=== PATIENT | female | born 1965 | race Caucasian/White ===

== ENCOUNTER 2022-07-24 10:30 | Outpatient (RCR) | payer OTHER, SELFPAY ==
--- NOTE | 2022-06-01 10:48 | PTOPEVAL1 ---
Assessment and note entered by Pippa Weaver, PT, DPT Evaluation Information Assessment Status Evaluation Diagnosis R hip pain Onset chronic Subjective Information Pt reports R hip pain and back pain. She reports pain into the groin. She states she has completed physical therapy before and states it worked well but she stopped doing her exercises at home and the pain got worse. She reports she does not do any physical activity. She reports difficultly with prolonged standing and walking d/t back pain. Reported Pain Level Pain Score 1,1: Self Report Assessment PT Clinical Summary Ange is an inactive and deconditioned 57 y/o female who presents to therapy today with a diagnosis of R hip pain. Today she reports R hip and low back pain. She demonstrates decreased active and passive motion ROM in all directions with pain at the end ROM. She also demonstrates decreased hip strength. She has an increased lumbar lordosis in sitting and standing and this is even further exasperated during ambulation. Skilled physical therapy services are indicated to address the deficits noted above, to improve core strength, to manage pain, to limit impairment, and to return to baseline function. Plan of Care Interventions Electrical Stimulation,Gait Training,Hot Pack/Cold Pack,Manual Therapy,Neuro Re-education PT Services Indicated Yes Treatment Frequency and 2x/wk for 4 wks or until goals are met Duration These treatments will address the objective and functional deficits as defined above. The patient will be advanced safely and appropriately in order for the patient to progress towards his/her prior level of function. Additional exercises will be introduced and as well as a comprehensive home exercise program upon discharge, if needed, ?to ensure carryover of functional gains achieved in the clinic. This treatment plan has been reviewed and agreement upon by the patient.
--- NOTE | 2022-06-20 10:03 | PCPTNOTE ---
Patient reports she has other obligations and had to cancel this date.
--- NOTE | 2022-06-21 07:58 | PCPTNOTE ---
Patient called & cancelled scheduled appointment this date due to having other obligations.
--- NOTE | 2022-06-28 10:52 | PTOPPROG ---
Assessment and note entered by Pippa Weaver, PT, DPT Evaluation Information Assessment Status Progress Diagnosis R hip pain Onset chronic Subjective Information Pt initially asked how long the appointment is going to take because she does not want to be here . She states the pinching feeling in her groin area is getting better. She also states the pain in her hip when standing is also getting better. She reports an increase time spent on her feet, she states after this she is really sore, she states this was a different pain then usual, maybe from all of the time she spent on her feet. She reports fair to poor compliance with her exercise as she has not done any in almost 2 weeks . Assessment PT Clinical Summary Ange presents to therapy today for her progress report following 3 visits of skilled therapy to treat her R hip and low back pain. Today she reports 10% improvement in overall symptoms. She demonstrates no improvements in her ROM and minimal improvements in her strength. She was able to complete the 5xSTS test in less time but has not improved her gait speed. She reports fiar compliance with her HEP. Continuation of skilled physical therapy services are indicated to improve core strength, to improve hip ROM, to manage pain , and to promote unlimited functional mobility. Plan of Care Interventions Electrical Stimulation,Gait Training,Hot Pack/Cold Pack,Manual Therapy,Neuro Re-education, Therapeutic Activities,Therapeutic Exercise PT Services Indicated Yes Treatment Frequency and 1x/wk for 4 wks Duration These treatments will address the objective and functional deficits as defined above. The patient will be advanced safely and appropriately in order for the patient to progress towards his/her prior level of function. Additional exercises will be introduced and as well as a comprehensive home exercise program upon discharge, if needed, ?to ensure carryover of functional gains achieved in the clinic. This treatment plan has been reviewed and agreement upon by the patient.
--- NOTE | 2022-07-24 11:27 | PTOPPROG ---
Assessment and note entered by Pippa Weaver, PT, DPT Evaluation Information Assessment Status Progress Diagnosis R hip pain Onset chronic Subjective Information Pt states this week her hip has been hurting constantly compared to usually it is just with activity. Pt states prior to this last week she felt like therapy is helping. She continues to report poor compliance with her HEP. Assessment PT Clinical Summary Ange presents to therapy today for her progress report following 8 visits of skilled therapy. Today she demonstrates no improvement in her hip ROM nor pain with isolated hip motions. She continues to have max hip flexion of 90 deg and is lacking 10 deg from terminal hip extension. She demonstrates mild strength improvements, she continues to have moderate gait deviations including a wide base and weaving gait. Continuation of skilled physical therapy services are indicated to address the remaining deficits. It is recommended that the patient follow up with her referring provider regarding her minimal progress with therapy prior to continuing. Plan of Care Interventions Electrical Stimulation,Gait Training,Hot Pack/Cold Pack,Manual Therapy,Neuro Re-education, Therapeutic Activities,Therapeutic Exercise Treatment Frequency and pending follow up with referring provider and Duration insurance authorization These treatments will address the objective and functional deficits as defined above. The patient will be advanced safely and appropriately in order for the patient to progress towards his/her prior level of function. Additional exercises will be introduced and as well as a comprehensive home exercise program upon discharge, if needed, ?to ensure carryover of functional gains achieved in the clinic. This treatment plan has been reviewed and agreement upon by the patient.
--- NOTE | 2022-08-27 13:46 | PTOPDC ---
Assessment and note entered by Pippa Weaver, PT, DPT Evaluation Information Assessment Status Discharge - Pt Not Present Diagnosis R hip pain Onset chronic Subjective Information At pt re-eval over a month ago, her plan was to follow up with her referring provider and then contact the clinic again to schedule. We have not heard from her since her last visit on 07/24/22. Assessment PT Clinical Summary Ange has completed 8 visits of therapy from 06/01 to 07/24/22 with fair compliance. She will be discharged at this time. If she is to return at a later date, she will need a new order. Plan of Care Treatment Frequency and discharge Duration
== END 2022-08-27 16:16 | disposition home or self-care (01) ==
LOC: ANHGOSHPT 10:30
PROVIDERS: PCP Internal Medicine Medical Oncology; Visit Provider Family Medicine
DX: M62.81 Muscle weakness (generalized) (principal)
CPT/HCPCS: 97110; 97112; 97140; 97161; 97530; 99199

== ENCOUNTER 2023-01-15 13:35 | Outpatient (CLI) | payer OTHER, SELFPAY ==
--- NOTE | ~2023-01-15 | CT_ITS ---
EXAMINATION: CT hip RT wo con DATE: 01/15/2023 13:52 INDICATION: Right hip pain TECHNIQUE: High resolution computed tomography (CT) of the right hip was performed without intravenou s contrast. Additional sagittal and coronal reconstructions were performed. The dose-length product w as 983.22 mGy-cm. COMPARISON: None FINDINGS: Bone alignment is normal. No fracture or suspected avascular necrosis. Severe osteoarthritis at the r ight hip with anterosuperior predominant nonuniform joint space narrowing . Appears essentially bone- on-bone with prominent underlying subarticular sclerosis and cystlike changes. There are also moderat e size marginal osteophytes about the femoral head and acetabulum. Very small likely reactive right h ip joint effusion. Moderate lower lumbar facet osteoarthritis. Couple small sclerotic bone islands at the right posterior iliac spine. The visualized portion of the bowels including appendix are normal. Bladder, anteverted uterus and right adnexa are unremarkable. No pathologically enlarged right pelvi c or inguinal lymphadenopathy. IMPRESSION: 1. Severe right hip osteoarthritis. Reviewed, dictated and finalized at location L.
== END 2023-01-15 13:36 | disposition home or self-care (01) ==
PROVIDERS: PCP Family Medicine; Visit Provider Nurse Practitioner Adult Health
DX: M16.11 Unilateral primary osteoarthritis, right hip (principal)
CPT/HCPCS: 73700